=== PATIENT | female | born 1975 | race Hispanic/Latino ===

== ENCOUNTER 2019-12-24 05:54 | Emergency (ER) | payer BC, OTHER ==
[2019-12-24 07:11] LABS: Bacteria/HPF None Seen HPF (None Seen); Bilirubin Negative (Negative); Blood, Urine Negative (Negative); Clarity Clear (Clear); Glucose, Urine (Dipstick) Greater than 1000 mg/dL (Negative); Ketone, Urine 100 mg/dL (Negative); Leukocyte 75 Leu/uL (Negative); Nitrite Negative (Negative); Protein, Urine (Dipstick) Negative (Neg-Trace); RBC/HPF 0-3 HPF (0-3); Specific Gravity, Urine 1.042 (1.002-1.036); Urobilinogen Normal mg/dL (Less than 2); pH, Urine 5.5 (5.0-9.0)
[2019-12-24 07:23] LABS: BHCG - Serum Negative (NEGATIVE); Pregs Control Background? CLEAR/WHITE (CLR/WHITE); Pregs Control Bar Appear? YES (CONTROL BAR)
[2019-12-24 07:33] LABS: ALT (SGPT) 21 U/L (8-55); AST (SGOT) 13 U/L (5-34); Albumin 3.9 g/dL (3.5-5.0); Alkaline Phosphatase 103 U/L (40-110); Anion Gap 16 mmol/L (10-20); BUN (Urea Nitrogen) 9 mg/dL (7.0-18.7); Bilirubin, Total 0.7 mg/dL (0.2-1.2); Calc. Creatinine Clearance 0 mL/min (70-130); Calcium 8.9 mg/dL (7.8-10.44); Carbon Dioxide 19 mmol/L (22-29); Chloride 103 mmol/L (98-107); Estimated GFR-MDRD Greater than 90; Globulin 3.7 g/dL (2.4-3.5); Glucose 282 mg/dL (70-105); Lipase 6 U/L (8-78); Potassium 3.7 mmol/L (3.5-5.1); Protein, Total 7.6 g/dL (6.0-8.3); Sodium 134 mmol/L (136-145)
[2019-12-24 07:48] LABS: Hemoglobin 13.4 g/dL (12.0-16.0); Mean Corpuscular HGB CONC 32.1 g/dL (32.0-36.0); Mean Corpuscular Hemoglobin 24.2 pg (27.0-31.0); Mean Corpuscular Volume 75.2 fL (78.0-98.0); Mean Platelet Volume 12.1 fL (7.4-10.4); Platelet Count 146 thou/uL (130-400); Red Blood Cell (RBC) Count 5.56 mill/uL (4.20-5.40); White Blood Cell (WBC) Count 16.6 thou/uL (4.8-10.8)
[2019-12-24 07:57] LABS: #Lymphocytes 1.1 thou/uL (1.20-3.40); #Monocytes 0.7 thou/uL (0.11-0.59); #Neutrophils 14.8 thou/uL (1.40-6.50); %Lymphocytes 6.9 % (21.0-51.0); %Monocytes 4.5 % (0.0-10.0); %Neutrophils 88.6 % (42.0-75.0); Large Platelets SLIGHT; MDiff Complete? YES; Platelet Morphology Comment Appears Adequate
[2019-12-24] MEDS ORDERED: Ondansetron PF 4 MG/2 ML Vial ONE (08:01)
[2019-12-24] MEDS ORDERED: Morphine 4 MG/ML VIAL ONE (08:01)
--- NOTE | 2019-12-24 08:08 | CT ---
ABDOMEN AND PELVIC CT SCAN WITH IV CONTRAST: HISTORY: Abdominal pain, primarily lower quadrants. Prior appendectomy. FINDINGS: Lung bases appear clear. Multiple gallstones are noted within the gallbladder without wall thickenin g or pericholecystic fat stranding or edema. The liver, pancreas, spleen, and adrenal glands are unr emarkable. No renal calculus or acute obstruction. There are several borderline-sized small mary l loops in the abdomen filled with fluid, nonspecific, possibly mild early ileus but no evidence for high-grade obstruction. No CT evidence for acute appendicitis. Uterus and adnexal regions were unre markable. Small fat-containing right inguinal hernia. IMPRESSION: Several borderline-size small bowel loops which are filled with fluid in the mid and lower abdomen, p ossibly related to some mild ileus or less likely enteritis, but certainly no evidence for high-grade bowel obstruction. Gallstones. Fat-containing right inguinal hernia. No evidence for other acute process. POS: OFF
--- NOTE | 2019-12-24 09:26 | ULT ---
Exam: Right upper quadrant ultrasound: HISTORY: Abdominal pain. COMPARISON: CT abdomen on 12/24/2019 FINDINGS: Liver: Within normal limits Gallbladder: Multiple echogenic foci with posterior shadowing seen in the gallbladder lumen compatibl e with multiple gallbladder calculi are also seen on recent CT scan exam. There is no gallbladder wall thickening or pericholecystic fluid. Common bile duct: The common duct is normal in caliber measuring 0.4 cm in diameter. Pancreas: Limited visualized portions of the pancreas demonstrate a normal sonographic appearance. Right kidney: Right kidney demonstrates a normal sonographic appearance. The right kidney measures 1 2.8 cm in length. IVC: The visualized IVC demonstrates a normal sonographic appearance. IMPRESSION: Cholelithiasis. Common duct is normal in caliber.
[2019-12-24] MEDS ORDERED: Iopamidol 370 76% 100 ML VIAL ONE (10:15)
[2019-12-25 18:02] LABS: SARS-CoV-2 MS2 Positive; SARS-CoV-2 N Gene Positive; SARS-CoV-2 S Gene Negative; SARS-CoV-2 by NAA Indeterminate (NotDetected); SARS-CoV-2 orf1ab Negative
== END 2019-12-24 11:20 | disposition home or self-care (01) ==
LOC: ERS 05:54
DX: K52.9 Noninfective gastroenteritis and colitis, unspecified (principal); K80.20 Calculus of gallbladder without cholecystitis without obstruction; Z20.828 Contact with and (suspected) exposure to other viral communicable diseases; E11.9 Type 2 diabetes mellitus without complications; Z79.84 Long term (current) use of oral hypoglycemic drugs
CPT/HCPCS: 36415; 36416; 74177; 76705; 80053; 81003; 81015; 83605; 83690; 84703; 85025; 87635; 93005; 96361; 96372; 96374; 96375; J0500; J2270; J2405; U0003